=== PATIENT | female | born 1960 | race Caucasian/White ===

== ENCOUNTER 2016-12-09 19:04 | Observation (INO) | payer BC ==
[~2016-12-09] VITALS: Ht 157.5 cm; Wt 45.5 kg
[~2016-12-09 19:04] MED LIST: AMBIEN5 MG PO; ASPIRIN 81 MG E81 MG PO; BRILINTA90 MG PO; CELEXA10 MG PO; CELEXA20 MG PO; CIPRO500 MG; DURAGESIC1 PATCH .3 TD; DURAGESIC1 PATCH .7 TD; FISH OIL 1,2001 CA1 PO; HYDROCODONE-APA1 TA3 PO; HYDROCODONE-APA1 TAB PO; K-TAB10 MEQ PO; LASIX40 MG PO; LASIX80 MG PO; LIBRAX CAPSULE1 CAP PO; MORPHINE SULFAT30 MG PO; NICODERM C1 PATCH .3 TP; NITROSTAT0.4 MG SL; PLAVIX75 MG PO; PROTONIX20 MG PO; RESTORIL15 MG PO; SPIRIVA18 MCG INH; TAPAZOLE 5 MG TA5 MG PO; TOPROL XL25 MG PO; VALIUM10 MG PO; ZANAFLEX2 M1 PO; ZANAFLEX4 MG PO; ZOCOR20 MG PO; ZOCOR5 MG PO
[2016-12-09 19:48] LABS: BASOPHILS 0.1 % (0.0-2.0); EOSINOPHILS 1.9 % (0-7); HEMATOCRIT 41.1 % (36.0-48.0); HEMOGLOBIN 13.3 g/dL (12-16); IMMATURE GRANULOCYTES 0.2 % (0-5); LYMPHOCYTES 47.1 % (15-50); MCH 29.4 pg (26.0-34.0); MCHC 32.4 g/dL (31.0-37.0); MCV 90.9 fL (80.0-100.0); MEAN PLATELET VOLUME 8.9 fL (7.4-10.4); MONOCYTES 3.7 % (2-11); PLATELET COUNT 268 10x3/uL (130-400); RBC 4.52 10x6/uL (4.00-5.40); RDW 12.6 % (11.5-14.5); WBC 8.4 10x3/uL (4.8-10.8)
[2016-12-09 20:02] LABS: ALBUMIN 3.1 g/dL (3.4-5.0); ALKALINE PHOSPHATASE 148 U/L (46-116); ALT (SGPT) 15 U/L (10-68); BILIRUBIN - TOTAL 0.15 mg/dL (0.2-1.3); CALC OSMOLALITY 280 mosm/kg (275-300); CALCIUM 8.7 mg/dL (8.5-10.1); CARBON DIOXIDE 31.4 mmol/L (21.0-32.0); CHLORIDE - SERUM 104 mmol/L (98-107); CREATININE - SERUM 0.8 mg/dL (0.6-1.3); GLUCOSE 101 mg/dL (74-106); POTASSIUM - SERUM 3.3 mmol/L (3.5-5.1); SODIUM 141 mmol/L (136-145); UREA NITROGEN 12 mg/dL (7-18); eGFR NON AFRICAN AMERICAN 79 mL/min (90-120)
[2016-12-09 20:14] LABS: CHOL - HDL RATIO 5.4 ratio (2.3-4.1); CHOLESTEROL, TOTAL 204 mg/dL (0-200); CKMB 0.4 U/L (0.0-3.6); CREATINE KINASE 37 UL (21-215); HDL CHOLESTEROL 38 mg/dL (32-96); LDL CHOLESTEROL 139 mg/dL (0-100); LDL-HDL RATIO 3.7 ratio (1.5-3.5); TRIGLYCERIDE 138 mg/dL (30-200); TROPONIN-I < 0.017 ng/mL (0.000-0.060)
--- NOTE | 2016-12-09 21:18 | NUR ---
RECIEVED REPORT FROM KAMLA IN ER
--- NOTE | 2016-12-09 22:33 | NUR ---
PT RESTING IN BED. ALERT ORIENTED CONVERSANT. SINUSBRADY VIA EKG. MAN AT BEDSIDE ANSWERS MOST IF NOT ALL QUESTIONS POSED TO PT.
--- NOTE | 2016-12-09 22:56 | NUR ---
MAN AT BEDSIDE IS PT . SPOKE WITH HIM ABOUT PT MED LIST. STATED THAT THEY DID NOT HAVE A CURRENT COPY OF PT MED LIST. REQUESTED THAT LIST BE BROUGHT WHEN ABLE.
[2016-12-10 01:54] LABS: CKMB 0.5 U/L (0.0-3.6); CREATINE KINASE 29 UL (21-215)
[2016-12-10 01:55] LABS: TROPONIN-I < 0.017 ng/mL (0.000-0.060)
[2016-12-10 04:46] VITALS: BP 106/65; Ht 157.5 cm; Wt 45.5 kg
[2016-12-10 05:01] VITALS: BP 124/61
[2016-12-10 07:03] LABS: CKMB 0.4 U/L (0.0-3.6); CREATINE KINASE 28 UL (21-215); TROPONIN-I < 0.017 ng/mL (0.000-0.060)
[2016-12-10 07:20] VITALS: BP 103/64
--- NOTE | 2016-12-10 07:41 | NUR ---
ASSESSMENT COMPLETED. TELEMERTY SHOWS SR 60. O2 AT 2 L/M PER NC.DENIES ANY NEEDS AT PRESENT TIME. CALL LIGHT IN REACH WITH SR UP. WILL MONITOR
== END 2016-12-10 09:25 | disposition home or self-care (01) ==
LOC: D.ER 19:04 → D.M2 20:43 → OBSVTIME 20:43 → D.M2 12-10 09:25
PROVIDERS: Emergency Medicine; ADMIT Internal Medicine Cardiovascular Disease
DX: I25.110 Atherosclerotic heart disease of native coronary artery with unstable angina pectoris (principal); Z95.5 Presence of coronary angioplasty implant and graft; I10 Essential (primary) hypertension; Z86.73 Personal history of transient ischemic attack (TIA), and cerebral infarction without residual deficits; E05.00 Thyrotoxicosis with diffuse goiter without thyrotoxic crisis or storm; G80.9 Cerebral palsy, unspecified; Z72.0 Tobacco use

== ENCOUNTER → 2017-05-15 19:17 | Outpatient (CLI) | payer BC ==
[2016-12-10 04:46] VITALS: BMI 18.3
[2017-05-15 20:50] LABS: APPEARANCE CLEAR (CLEAR); BILIRUBIN NEGATIVE (NEGATIVE); COLOR YELLOW (YELLOW); GLUCOSE NEGATIVE (NEGATIVE); KETONE NEGATIVE (NEGATIVE); LEUKOCYTE ESTERASE TRACE (NEGATIVE); NITRITE NEGATIVE (NEGATIVE); PROTEIN NEGATIVE (NEGATIVE); UROBILINOGEN NORMAL (NORMAL)
[2017-05-15 20:51] LABS: BACTERIA MODERATE /hpf (NONE SEEN); EPITHELIAL CELLS OCC /hpf (0-5); RED CELLS - URINE OCC /hpf (0-5); WHITE CELLS - URINE 0-5 /hpf (0-5)
== END | disposition home or self-care (01) ==
LOC: D.LABREF 19:17
PROVIDERS: Urology
DX: N39.0 Urinary tract infection, site not specified (principal)

== ENCOUNTER → 2017-05-30 18:44 | Outpatient (CLI) | payer BC ==
[2016-12-10 04:46] VITALS: BMI 18.3
[2017-05-30 19:20] LABS: APPEARANCE CLEAR (CLEAR); BILIRUBIN NEGATIVE (NEGATIVE); COLOR YELLOW (YELLOW); GLUCOSE NEGATIVE (NEGATIVE); KETONE NEGATIVE (NEGATIVE); LEUKOCYTE ESTERASE TRACE (NEGATIVE); NITRITE NEGATIVE (NEGATIVE); PROTEIN NEGATIVE (NEGATIVE); UROBILINOGEN NORMAL (NORMAL)
[2017-05-30 19:21] LABS: BACTERIA FEW /hpf (NONE SEEN); EPITHELIAL CELLS 0-5 /hpf (0-5); RED CELLS - URINE OCC /hpf (0-5); WHITE CELLS - URINE 0-5 /hpf (0-5)
== END | disposition home or self-care (01) ==
LOC: D.LABREF 18:44
PROVIDERS: Urology
DX: N39.0 Urinary tract infection, site not specified (principal)

== ENCOUNTER 2017-06-08 06:26 | Day surgery (SDC) | payer BC ==
[2017-06-06 11:34] LABS: HEMATOCRIT 43.6 % (36.0-48.0); HEMOGLOBIN 14.1 g/dL (12-16); MCHC 32.3 g/dL (31.0-37.0); MCV 92.8 fL (80.0-100.0); MEAN PLATELET VOLUME 9.3 fL (7.4-10.4); RBC 4.7 10x6/uL (4.00-5.40); RDW 13.2 % (11.5-14.5); WBC 7.9 10x3/uL (4.8-10.8)
[~2017-06-08] VITALS: Ht 157.5 cm; Wt 48.5 kg
[~2017-06-08 06:26] MED LIST changes: +AMOXICILLIN500 M1 PO; +EFFEXOR XR75 MG PO; +OXYBUTYNIN CHLOR5 MG PO
[2017-06-08 08:21] LABS: HCG URINE NEGATIVE (NEGATIVE)
[2017-06-08 08:27] VITALS: BP 112/68; Ht 157.5 cm; Wt 48.5 kg
--- NOTE | 2017-06-09 08:58 | OP ---
PATIENT NAME: MGEA KEY MEDICAL RECORD: [id number] :62 LOCATION:D.OPS ADMISSION DATE: SURGEON: HEIDY BARRY MD DATE OF OPERATION: 06/08/2017 SURGEON: Heidy Barry MD ANESTHESIA: MAC by Koby Montes CRNA. PREOPERATIVE DIAGNOSIS: Interstitial cystitis. POSTOPERATIVE DIAGNOSIS: Interstitial cystitis. FINDINGS: Single ureteral orifices bilaterally. No bladder tumors. Diffuse bladder inflammation. PROCEDURES: Cystoscopy, intravesical Rimso instillation 50 mL times 50%. SPECIMENS: None. COMPLICATIONS: None. ESTIMATED BLOOD LOSS: None. CLINICAL HISTORY: This is a 57-year-old female, who has symptoms of ongoing urinary tract infections. These include urinary frequency, pelvic pain and dyspareunia. On pelvic examination, she has a lot of tenderness in the trigonal region of the bladder. She has been put on multiple antibiotics without any response and she has also tried oxybutynin without any response. When I saw earlier this year, she did have a true cystitis with bacterial growth. This was treated by her symptoms persist. She comes now to have cystoscopy and possibly intravesical Rimso instillation if we find bladder inflammation. Rimso is an anti-inflammatory. SHE IS ALLERGIC TO DOXYCYCLINE, LISINOPRIL, SULFA AND ALY INHIBITORS. She was given Ancef 2 grams IV quarter section ironer to the OR. DESCRIPTION OF PROCEDURE: The patient was given IV sedation. She was then placed into dorsal lithotomy position and prepped and draped. A 17-Venezuelan cystoscope with 30-degree lens was used for visualization. Findings are as outlined above. The bladder was then emptied through the scope sheath and then the sheath was removed. A 14-Venezuelan red rubber catheter was introduced into the bladder and any residual fluid was drained out of the bladder. The Rimso solution was then put into the bladder using a Raul syringe. The catheter was then removed, leaving the Rimso solution in the bladder. She will hold it in for 15 minutes and then void it out. She will come to my office next week to have the second treatment given to her by my nurse. TRANSINT:[id number] Voice Confirmation ID: [id number] DOCUMENT ID: [id number] OPERATIVE REPORT [id number] MEGA KEY HEIDY BARRY MD at 2480 CC: [id number] DICTATION DATE: 06/08/17 1139 INDUSTRIAL CONTROLLER: 06/08/17 1756 [facility] 06/08/17 [id number] [place] [address]
== END 2017-06-08 12:25 | disposition home or self-care (01) ==
LOC: D.OPS 06:26 → D.PAN 10:40 → D.OPS 10:40 → D.PAN 10:45 → D.OPS 10:45
PROVIDERS: Anesthesiology; Urology
DX: N30.10 Interstitial cystitis (chronic) without hematuria (principal); Z88.1 Allergy status to other antibiotic agents; Z88.2 Allergy status to sulfonamides; Z88.8 Allergy status to other drugs, medicaments and biological substances; Z01.812 Encounter for preprocedural laboratory examination

== ENCOUNTER → 2017-06-28 18:52 | Outpatient (CLI) | payer BC ==
[2017-06-08 08:27] VITALS: BMI 19.6
[2017-06-29 00:26] LABS: APPEARANCE HAZY (CLEAR); BILIRUBIN NEGATIVE (NEGATIVE); COLOR GREEN (YELLOW); GLUCOSE NEGATIVE (NEGATIVE); KETONE NEGATIVE (NEGATIVE); LEUKOCYTE ESTERASE TRACE (NEGATIVE); NITRITE NEGATIVE (NEGATIVE); PROTEIN TRACE mg/dL (NEGATIVE); SPECIFIC GRAVITY 1.015 (1.005-1.020); UROBILINOGEN NORMAL (NORMAL)
[2017-06-29 00:30] LABS: BACTERIA MODERATE /hpf (NONE SEEN); MUCUS <1+ /lpf (NONE SEEN)
== END | disposition home or self-care (01) ==
LOC: D.LABREF 18:52
PROVIDERS: Urology
DX: N39.0 Urinary tract infection, site not specified (principal)

== ENCOUNTER 2017-07-06 08:25 | Day surgery (SDC) | payer BC ==
[~2017-07-06] VITALS: Ht 157.5 cm; Wt 47.7 kg
[2017-07-06 09:13] LABS: BASOPHILS 0.2 % (0-2); EOSINOPHILS 1.1 % (0-7); HEMATOCRIT 42.9 % (36.0-48.0); HEMOGLOBIN 14.2 g/dL (12-16); LYMPHOCYTES 40.9 % (15-50); MCH 30.3 pg (26.0-34.0); MCHC 33.1 g/dL (31.0-37.0); MCV 91.5 fL (80.0-100.0); MEAN PLATELET VOLUME 8.7 fL (7.4-10.4); MONOCYTES 3.9 % (2-11); NEUTROPHILS 53.9 % (40-80); PLATELET COUNT 237 10x3/uL (130-400); RBC 4.69 10x6/uL (4.00-5.40); WBC 5.4 10x3/uL (4.8-10.8)
[2017-07-06 09:22] LABS: CALC OSMOLALITY 278 mosm/kg (275-300); CALCIUM 8.7 mg/dL (8.5-10.1); CARBON DIOXIDE 28.8 mmol/L (21.0-32.0); CHLORIDE - SERUM 106 mmol/L (98-107); CREATININE - SERUM 0.7 mg/dL (0.6-1.3); GLUCOSE 93 mg/dL (74-106); POTASSIUM - SERUM 4.1 mmol/L (3.5-5.1); SODIUM 141 mmol/L (136-145); UREA NITROGEN 8 mg/dL (7-18); eGFR NON AFRICAN AMERICAN > 90 mL/min (90-120)
[2017-07-06 09:25] VITALS: BP 121/77; Ht 157.5 cm; Wt 47.7 kg
[2017-07-06 10:01] LABS: HCG URINE NEGATIVE (NEGATIVE)
--- NOTE | 2017-07-06 17:30 | NUR ---
1720 DISCHARGE INSTRUCTIONS COMPLETE. PT HAS NO QUESTIONS OR CONCERNS AT THIS TIME. ESCORTED OUT BY GORDON GODDARD.
--- NOTE | 2017-07-07 11:24 | OP ---
PATIENT NAME: MEGA KEY MEDICAL RECORD: [id number] :62 LOCATION:D.OPS ADMISSION DATE: SURGEON: YARON BARRY MD DATE OF OPERATION: 07/06/2017 SURGEON: Yaron Barry MD ANESTHESIA: MAC by Ayala John CRNA. PREOPERATIVE DIAGNOSIS: Acute cystitis. PROCEDURES: Straight catheterization of urine for culture. FINDINGS: Clear appearing urine SPECIMENS: Urine. CLINICAL HISTORY: This is a 57-year-old female with history of urinary tract infection symptoms. Sometimes these cultures have grown nothing. In May of this year, she had cystoscopy, which showed bladder inflammation and we had treated her with intravesical Rimso. Lately, she feels further episodes of suprapubic pain as well as dysuria. She was started empirically on amoxicillin 2 weeks ago, but this has not helped her. Urine cultures have shown mixed organisms. In the office yesterday, we attempted to get a urine specimen by straight catheterization. However, the patient has quite severe vaginal stenosis. 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 This prevented a great deal of difficulty in getting a catheter going to the urethra. She comes now to have the same procedure done under IV sedation so that her legs can be placed apart a little more. She was not given any antibiotics as we did not want to affect her urine culture results. DESCRIPTION OF PROCEDURE: The patient was given IV sedation. She was placed into dorsal lithotomy position and she was prepped and draped. A red rubber catheter was used. The urethra could be identified and it was entered into. Urine was obtained for culture. She will be sent for aerobic, anaerobic, and fungal cultures. Once the bladder was emptied, the red rubber catheter was removed and the patient was brought to the recovery room. TRANSINT:[id number] Voice Confirmation ID: [id number] DOCUMENT ID: [id number] YARON BARRY MD at 1124 CC: [id number] DICTATION DATE: 07/06/17 1604 FITTER MECHANIC: 07/07/17 0025 [facility] 07/06/17 [place] [address]
[2017-07-07 14:20] LABS: FUNGUS STAIN Final report (())
== END 2017-07-06 17:20 | disposition home or self-care (01) ==
LOC: D.OPS 08:25
PROVIDERS: Anesthesiology; Urology
DX: N30.00 Acute cystitis without hematuria (principal); F17.200 Nicotine dependence, unspecified, uncomplicated; K21.9 Gastro-esophageal reflux disease without esophagitis; Z95.5 Presence of coronary angioplasty implant and graft; Z01.812 Encounter for preprocedural laboratory examination

== ENCOUNTER 2019-07-26 08:55 | Outpatient (CLI) | payer OTHER ==
[~2019-07-26] VITALS: Ht 157.5 cm; Wt 49.5 kg
--- NOTE | ~2019-07-26 | HEMODYNAMI ---
PATIENT:MEGA KEY MEDICAL RECORD: [id number] : 64 LOCATION:[facility] ADMISSION DATE: 07/26/19 Generatedon:07/26/201914:24 Patient name: MEGA KEY Patient #: [id number] SSN: [id number] : 1960 Date of study: 07/26/2019 Page: Of Hemodynamic Procedure Report Patient Data Patient Demographics Procedure consent was obtained First Name: MEGA Gender: Female Last Name: SHAHID : 1960 Middle Initial: MIMI Age: 59 year(s) Patient #: [id number] Race: SSN: [id number] Additional ID: [id number] Contact details [address]: [address] [place] [address] State: [place] City: [place] Zip code: [address] Past Medical History History of disease Date Diagnosis Comments CAD Allergies Allergen Reaction Date Comments Reported Other allergy 01/05/2015 doxycycline, lisinopril, sulfa Other allergy 07/26/2019 DOXYCYCLINE, LISINOPRIL, SULFA Admission Admission Data Admission Date: 07/26/2019 Admission Time: 8:55 Arrival Date: 07/26/2019 Arrival Time: 0:00 [facility] Pay[facility]: Private health insurance PSYCHIATRIC #: [id number] Height (in.): 61.81 BSA: 1.48 (m2) Height (cm.): 157 BMI: 20.28 (kg/m2) Weight (lbs.): 110.23 Weight (kg.): 50 Lab Results Lab Result Date: 07/26/2019 Lab Result Time: 0:00 Biochemistry Name Units Result Min Max BUN mg/dl 12 --(-*--)-- 7 18 Creatinine mg/dl 0.9 --(-*--)-- 0.6 1.3 eGFR ml/min 67.76377 *-(----)-- 90 120 NONAFRICAN CBC Name Units Result Min Max Hematocrit % 41.4 -*(----)-- 42 54 Hemoglobin g/dl 13.6 --(*---)-- 13.5 17.5 Procedure Procedure Types Cath Procedure Diagnostic Procedure [facility] w/Coronaries FFR/IVUS FFR Initial FFR Additional Sedation Charges Moderate Sedation up to 30 minutes Peripheral Cath Diagnostic Procedure Proofreader Peripheral Procedures AFRO (Diagnostic) Procedure Description Procedure Date Procedure Date: 07/26/2019 Procedure Start Time: 13:37 Procedure End Time: 14:19 Procedure Staff Name Function Humberto Ruggiero MD Performing Physician Rosio Childress RT Monitor Margaret Cuellar RT Scrub Rogers Gilbert RN Nurse William Zimmer RT Fire Prevention Bureau Captain Indication CAD Procedure Data Cath Procedure Fluoroscopy Diagnostic fluoroscopy Total fluoroscopy Time: 9.2 time: 9.2 min min Diagnostic fluoroscopy Total fluoroscopy dose: 447 dose: 447 mGy mGy Contrast Material Contrast Material Type Amount (ml) Isovue 300 164 Entry Location Entry Primary Successful Side Size Upsize Upsize Entry Closure Succes sful Closure Location (Fr) 1 (Fr) 2 (Fr) Remarks Device Remarks Femoral Right 5 Fr 6 Fr Exoseal artery Short Estimated blood loss: 10 ml Diagnostic catheters Device Type Used For End Catheter Placement MULTIPACK 3DRC 5Fr Procedure catheter MULTIPACK Pigtail 5 Fr Procedure catheter MULTIPACK JL 4.0 5Fr Procedure catheter MULTIPACK 3DRC 5Fr Procedure catheter Procedure Complications No complications Procedure Medications Medication Administration Route Dosage Oxygen etCO2 Nasal cannula 2 l/min Lidocaine 2% added to field 20 Heparin Flush Bag added to field 2 bags (1000units/500ml NS) Versed I.V. 2 mg Fentanyl I.V. 100 mcg Versed I.V. 1 mg Fentanyl I.V. 50 mcg Versed I.V. 1 mg Heparin Bolus I.V. 4000 units Hemodynamics Rest BSA: 1.48 (m2) HGB: 13.6 (g/dl) O2 Consumption: Estimated: 137.33 (ml/min) O2 Co nsumption indexed: Estimated:92.79 (ml/min/m) Heart Rate: 62 (bpm) Snapshots Pre Cath Intra NCS Post Cath Vital Signs Time Heart Resp SPO2 etCO2 NIBP (mmHg) Rhythm Pain Sedation Rate (ipm) (%) (mmHg) Status Level (bpm) 13:07:20 66 19 100 0 157/76(101) NSR 0 (11) 10(A) , No pain 13:11:35 67 21 99 0 138/74(107) NSR 0 (11) 10(A) , No pain 13:15:51 67 19 99 28.3 139/77(103) NSR 0 (11) 10(A) , No pain 13:20:04 77 19 96 27.6 137/87(111) NSR 0 (11) 10(A) , No pain 13:24:13 79 17 95 41 125/80(104) NSR 0 (11) 10(A) , No pain 13:28:25 68 17 96 20.1 130/75(105) NSR 0 (11) 10(A) , No pain 13:32:35 77 20 96 22.4 117/83(94) NSR 0 (11) 10(A) , No pain 13:36:43 77 14 93 0 119/74(93) NSR 0 (11) 9(A) , No pain 13:40:51 70 15 95 10.4 78/49(65) NSR 0 (11) 9(A) , No pain 13:44:50 66 10 95 29.8 92/53(68) NSR 0 (11) 9(A) , No pain 13:48:54 63 14 94 37.2 102/61(82) NSR 0 (11) 9(A) , No pain 13:53:02 66 13 94 34.3 105/58(75) NSR 0 (11) 9(A) , No pain 13:57:14 69 11 94 34.3 97/49(74) NSR 0 (11) 9(A) , No pain 14:01:22 69 11 94 35.8 100/54(79) NSR 0 (11) 9(A) , No pain 14:05:28 67 12 94 35 104/58(72) NSR 0 (11) 9(A) , No pain 14:09:35 75 12 96 35.8 111/60(80) NSR 0 (11) 10(A) , No pain 14:13:41 70 15 97 38 111/73(91) NSR 0 (11) 10(A) , No pain 14:17:47 72 21 99 37.2 109/73(91) NSR 0 (11) 10(A) , No pain Medications Time Medication Route Dose Verified Delivered Reason Notes Effectiveness by by 13:18:21 Heparin Flush added 2 Humbertosamara Taverarey used for Bag to bags Monik Ruggiero MD procedure (1000units/500ml field NS) 13:18:21 Oxygen etCO2 2 Humberto Rojasie used for Nasal l/min Monik Gilbert RN procedure cannula 13:18:28 Lidocaine 2% added 20ml Humberto Paul for local to vial Monik Ruggiero MD anesthetic field 13:33:35 Versed I.V. 2 mg Humberto Rojasie for sedation Monik Gilbert RN 13:33:42 Fentanyl I.V. 100 Humberto Buffie for sedation mcg Monik Gilbert RN 13:40:23 Versed I.V. 1 mg Humberto Rojsaie for sedation Monik Gilbert RN 13:40:29 Fentanyl I.V. 50 Humberto Rojasie for sedation mcg Monik Gilbert RN 13:49:12 Versed I.V. 1 mg Humberto Rojasie for sedation Monik Gilbert RN 13:53:42 Heparin Bolus I.V. 4000 Humberto Mccloud for verif ied units Monik Gilbert RN anticoagulation with dr ruggiero Procedure Log Time Note 12:38:15 Signed procedure consent form obtained from patient. 12:38:17 Procedure Status Elective Heart Cath (OP). 12:38:18 Time tracking: Regular hours (M-F 7:00 - 5:00) 12:38:21 Plan of Care:Hemodynamics will remain stable., Cardiac rhythm will remain stable., Comfort level will be maintained., Respiratory function will remain adequate., Patient/ family verbilizes understanding of procedure., Procedure tolerated without complication., Recovers from procedure without complications.. 12:39:57 Patient Weight : 110.23 lbs 12:40:29 Patient Height : 61.81 inches 12:40:34 Arrival Date: 07/26/2019 12:00:00 AM 12:41:08 Lab Result : eGFR NONAFRICAN 67.44177 ml/min 12:41:08 Lab Result : Creatinine 0.9 mg/dl 12:41:08 Lab Result : BUN 12 mg/dl 12:41:08 Lab Result : Hematocrit 41.4 % 12:41:08 Lab Result : Hemoglobin 13.6 g/dl 12:41:39 Insurance Payor : Private health insurance 12:43:27 William Zimmer RT(R) sent for patient. Start room use. 12:44:41 Patient allergic to Other allergyDOXYCYCLINE, LISINOPRIL, SULFA 12:45:09 Indication : CAD 12:57:03 Patient received from Pre/Post Procedure Room to CCL 1 Alert and oriented. Tansferred to table in Supine position. 12:57:04 Warm blankets applied, and alison hugger turned on for patient comfort. 12:57:05 Correct patient and procedure confirmed by team. 12:57:05 ECG and BP/O2 sat monitors applied to patient. 13:06:03 Vital chart was started 13:06:04 Baseline sample Acquired. 13:06:09 Rhythm: sinus rhythm 13:06:10 Full Disclosure recording started 13:06:17 H&P Date Dictated: 07/15/2019 Within 30 days and on chart., H&P Addendum completed by physician on day of procedure. (MUST COMPLETE FOR ALL OUTPATIENTS). 13:06:18 Pre-procedure instructions explained to patient. 13:06:19 Pre-op teaching completed and patient verbalized understanding. 13:06:20 Family in patients room. 13:06:22 Patient NPO since Midnight. 13:06:24 Is patient on blood thinner?Yes 13:06:26 ACC The patient was administered the following blood thiners within the last 24 hours: ACCPlavix 13:06:28 Patient diabetic? No. 13:06:38 Patient not . Patient is over age 55. 13:06:50 Previous problem with sedation/anesthesia? No ? 13:06:52 Snore? Yes 13:06:53 Sleep apnea? No 13:06:54 Deviated septum? No 13:06:56 Opens mouth fully? Yes 13:06:57 Sticks out tongue? Yes 13:06:59 Airway obstruction? No ? 13:07:03 Dentures? Yes IN TIGHT 13:07:14 Pre procedure: right dorsailis pedis pulse 1+ Palpable, but thready & weak; easily obliterated 13:07:16 Patient pain scale 0/10 ?. 13:07:21 IV patent on arrival in right antecubital with 0.9% NaCl at [facility]. 13:07:24 Lab results completed and on chart. 13:07:28 Right groin area was prepped with chlora-prep and draped in sterile fashion 13:07:29 Alarms reviewed by R. N. 13:07:30 Sharps counted by scrub and verified by R.N. 13:07:31 Use device set Femoral Dx 13:07:32 ACIST Syringe (42157) opened to sterile field. 13:07:38 Bag Decanter (2002S) opened to sterile field. 13:07:41 ACIST Hand Control (94967) opened to sterile field. 13:07:41 ACIST Manifold (08127) opened to sterile field. 13:07:42 Tegaderm 4 x 4 (1626W) opened to sterile field. 13:07:47 Medline Cath Pack ([id number]) opened to sterile field. 13:07:50 DIAGNOSTIC Multipack 5Fr catheter set (FJ1719) opened to sterile field. 13:07:51 SHEATH 5FR Warren (DCM379) opened to sterile field. 13:07:52 EMERALD Guide Wire (864-689) opened to sterile field. 13:18:21 Heparin Flush Bag (1000units/500ml NS) 2 bags added to field was administered by Humberto Ruggiero MD; used for procedure; Verbal order read back and verified. 13:18:21 Oxygen 2 l/min etCO2 Nasal cannula was administered by Rogers Gilbert RN; used for procedure; Verbal order read back and verified. 13:18:28 Lidocaine 2% 20ml vial added to field was administered by Humberto Ruggiero MD; for local anesthetic; Verbal order read back and verified. 13:31:50 Baseline sample Acquired. 13:32:31 --------ALL STOP TIME OUT------ 13:32:32 Final Timeout: patient, procedure, and site verified with staff and physician. All members of the team are in agreement. 13:32:34 Right groin site verified by team. 13:32:38 Fire Safety Assessment: A--An alcohol-based skin anteseptic being used preoperatively., C--Open oxygen or nitrous oxide is being used., D--An ESU, laser, or fiber-optic light is being used. 13:32:41 Physical assessment completed. ASA score P 2 - A patient with mild systemic disease as per Humberto Ruggiero MD. 13:32:50 2) 60-89 Mildly reduced kidney function, and other findings (as for stage 1) point to kidney disease. 13:33:01 Maximum allowable contrast dose (3.7 X eGFR X 0.75)189 ml. 13:33:04 Sedation plan: IV Moderate Sedation Medication:Versed, Fentanyl 13:33:22 Zero performed for pressure channel P1 13:33:35 Versed 2 mg I.V. was administered by Rogers Gilbert RN; for sedation; Verbal order read back and verified. 13:33:42 Fentanyl 100 mcg I.V. was administered by Rogers Gilbert RN; for sedation; Verbal order read back and verified. 13:35:38 Zero performed for pressure channel P1 13:36:56 Procedure started. 13:37:31 Local anesthetic to right femoral artery with Lidocaine 2% by Humberto Ruggiero MD.INITIAL ACCESS ONLY 13:39:44 A 5 Fr sheath was inserted into the Right Femoral artery 13:40:23 Versed 1 mg I.V. was administered by Rogers Gilbert RN; for sedation; Verbal order read back and verified. 13:40:29 Fentanyl 50 mcg I.V. was administered by Rogers Gilbert RN; for sedation; Verbal order read back and verified. 13:41:47 13:41:57 GLIDE WIRE ANGLE 260cm (YA9572) opened to sterile field. 13:42:02 A MULTIPACK 3DRC 5Fr catheter was advanced over the wire and used for Procedure. 13:42:21 GLIDE WIRE USED TO ADVANCE 3DRC DUE TO DIFFICULTY ADVANCING WIRE AND CATHETER 13:42:35 EMERALD Guide Wire (309-886) opened to sterile field. 13:44:57 3DRC REMOVED OVER THE WIRE. 13:45:03 A MULTIPACK Pigtail 5 Fr catheter was advanced over the wire and used for Procedure. 13:45:38 MAGIC TORQUE 180cm 0.035 wire ([id number]) opened to sterile field. 13:46:12 LV gram done using SCHROEDER 13:46:17 Injector settings: Ml/sec: 10, Volume: 20, 13:46:46 EF : 60 % 13:47:04 PIGTAIL PULLED DOWN FOR AFRO 13:47:30 Abdominal angiogram w/ runoff was performed. 13:47:34 Right leg runoff performed. 13:47:36 Left leg runoff performed. 13:47:54 Catheter exchanged over wire. 13:48:28 A MULTIPACK JL 4.0 5Fr catheter was advanced over the wire and used for Procedure. 13:49:12 Versed 1 mg I.V. was administered by Rogers Gilbert RN; for sedation; Verbal order read back and verified. 13:50:10 LCA angiography performed. 13:50:11 Catheter exchanged over wire. 13:50:40 SHEATH 6FR Warren (BKU072) opened to sterile field. 13:50:41 INFLATOR Merit BasixCompak (SL8553) opened to sterile field. 13:50:41 [place] Verrata Plus pressure wire (31253V) opened to sterile field. 13:50:48 GUIDE 6FR XBLAD 3.5 catheter ([id number]) opened to sterile field. 13:50:52 A MULTIPACK 3DRC 5Fr catheter was advanced over the wire and used for Procedure. 13:51:13 RCA angiography performed. 13:51:18 Catheter exchanged over wire. 13:52:04 Sheath upsized to a 6 Fr Short. 13:52:36 Pre PCI Site: [place] mCirc has 80% stenosis. 13:52:38 GUIDE 6FR AR 1.0 SH catheter ([id number]) opened to sterile field. 13:52:44 Pre PCI Site: [place] mLAD has 90% stenosis. 13:53:31 6 Fr AR 1 SH guide catheter was inserted over the wire 13:53:42 Heparin Bolus 4000 units I.V. was administered by Rogers Gilbert RN; for anticoagulation; verified with dr ruggiero Verbal order read back and verified. 13:54:18 FFR/IFR wire advanced. 13:54:51 Wire advanced across lesion. 13:55:09 mRCA lesion measured at .99 with IFR 13:55:24 Wire removed. 13:55:26 Guide catheter removed. 13:55:46 6 Fr XBLAD 3.5 guide catheter was inserted over the wire 13:57:40 FFR/IFR wire advanced. 13:58:50 Wire advanced across lesion. 13:58:55 mCirc lesion measured at .75 with IFR 14:02:12 Place stent Inflation Number: 1 A COSMO RX 2.25 x 18 stent ([id number]) was prepped and advanced across the Mid CX . The stent was deployed at 15 CHRISTIAN for 0:10 (min:sec) . 14:02:23 Stent catheter was removed intact over wire. 14:05:46 Wire removed. 14:05:56 CHOICE PT Extra Support 182cm wire ([id number]) opened to sterile field. 14:06:04 CHOICE ES 182 wire advanced. 14:06:17 Wire advanced across lesion. 14:07:37 Place stent Inflation Number: 1 A COSMO RX 2.5 x 22 stent ([id number]) was prepped and advanced across the Mid LAD . The stent was deployed at 13 CHRISTIAN for 0:00 (min:sec) . 14:07:51 Stent catheter was removed intact over wire. 14:09:05 Place stent Inflation Number: 2 A COSMO RX 2.5 x 15 stent ([id number]) was prepped and advanced across the Mid LAD . The stent was deployed at 13 CHRISTIAN for 0:00 (min:sec) . 14:09:50 Stent catheter was removed intact over wire. 14:09:51 Wire removed. 14:09:52 Guide catheter removed. 14:10:07 EXOSEAL 6Fr (EX600) opened to sterile field. 14:10:17 Sheath removed intact; hemostasis achieved with Exoseal to the Right Femoral artery. 14:10:19 Procedure ended.(Physican Out) 14:11:23 Fluoroscopy time 09.20 minutes. 14:11:27 Flurop Dose total: 447 14:11:27 Fluoroscopy dose: 447 mGy 14:11:34 Dose Area Product 89823 mGy/cm. 14:11:38 Contrast amount:Isovue 300 164ml. 14:12:22 Maximum allowable dose exceeded? No. 14:12:23 Sharps counted by scrub and verified by R.N. 14:12:26 Post-op/insertion site Right Femoral artery dressed using a 4 x 4 and Tegaderm. 14:13:52 Post-procedure physical assessment completed. ASA score P 2 - A patient with mild systemic disease as per Humberto Ruggiero MD. 14:13:55 Post procedure rhythm: sinus rhythm 14:13:57 Estimated blood loss: 10 ml 14:13:58 Post procedure instruction explained to patient.Patient verbalizes understanding. 14:13:58 Patient needs reinforcement of post procedure teaching. 14:14:39 Procedure type changed to Cath procedure, Diagnostic procedure, LHC, LHC w/Coronaries, FFR/IVUS, FFR Initial, FFR Additional, Sedation Charges, Moderate Sedation up to 30 minutes, Peripheral Cath Diagnostic Procedure, Proofreader Peripheral Procedures, AFRO (Diagnostic) 14:16:22 Procedure and supply charges have been captured, reviewed, submitted and are correct. 14:16:23 Procedure Complication : No complications 14:19:17 Vital chart was stopped 14:19:18 See physician's report for complete and final results. 14:19:19 Report given to Pre/Post Procedure Room. 14:19:21 Patient transfered to Pre/Post Procedure Room with Bed. 14:19:24 Procedure ended. 14:19:24 Full Disclosure recording stopped 14:19:29 End room use (Document Last) 14:23:32 End room use (Document Last) 14:23:58 End room use (Document Last) Intervention Summary Intervention Notes Time ActionType Lesion and Equipment Used Action# Pressure Duration Attributes 14:02:12 Place stent Mid CX COSMO RX 2.25 x 1 15 00:10 18 stent ([id number]) 14:07:37 Place stent Mid LAD COSMO RX 2.5 x 1 13 00:00 22 stent ([id number]) 14:09:05 Place stent Mid LAD COSMO RX 2.5 x 2 13 00:00 15 stent ([id number]) Device Usage Item Name Manufacture Quantity Catalog Number Hospital Part Current Minimal Lot# / Charge Number Stock Stock Serial# Code ACIST Syringe Acist 1 23661 337004 117773 342801 20 (07769) Medical Systems Inc Bag Decanter Microtek 1 2001S 679710 05087 430790 5 (2001S) Medical Inc. ACIST Hand Acist 1 36339 211687 029013 435774 5 Control Medical (13176) Systems Inc ACIST Manifold Acist 1 83092 570957 640002 856486 5 (73458) Medical Systems Inc Tegaderm 4 x 4 3M 1 1626W 115262 966998 386897 5 (1626W) Medline Cath Medline 1 [id number] 584900 52318 214983 5 Pack ([id number]) DIAGNOSTIC Cardinal 1 ZH1921 418849 61948 605798 30 Multipack 5Fr Health catheter set (JX2622) SHEATH 5FR Terumo 1 ZZJ988 944499 295358 679970 5 Warren (JZA180) EMERALD Guide Cardinal 2 502-455 297726 281754 445181 5 Wire (502-455) Health GLIDE WIRE Terumo 1 BL6119 458072 691815 393941 5 ANGLE 260cm (PY6296) MULTIPACK 3DRC Cardinal 1 473744 5 5Fr catheter Health MULTIPACK Cardinal 1 371442 5 Pigtail 5 Fr Health catheter MAGIC TORQUE [place] 1 [id number] 348006 073787 790009 1 180cm 0.035 Scientific wire ([id number]) MULTIPACK JL Cardinal 1 125123 5 4.0 5Fr Health catheter SHEATH 6FR Terumo 1 WUD589 389317 596575 047490 40 Warren (JIB749) INFLATOR Merit Merit 1 YQ2376 927571 450433 986602 15 I-Mob HoldingsAmerican [facility]ork Hospital Medical (VL1941) [place] 1 94471A 219744 016087125 252071 5 Verrata Plus pressure wire (17690S) GUIDE 6FR Cardinal 1 25106178 083736 674610 756592 10 XBLAD 3.5 Health catheter (82140624) GUIDE 6FR AR Medtronic 1 [id number] 995209 66734 088700 1 1.0 SH catheter ([id number]) COSMO RX 2.25 x Medtronic 1 [id number] 010669 3205559 793704 5 [id number] 18 stent ([id number]) CHOICE PT [place] 1 [id number] 832701 267684 698334 5 Extra Support Scientific 182cm wire (0638905L8) COSMO RX 2.5 x Medtronic 1 [id number] 133287 8911428 420155 5 [id number] 22 stent ([id number]) COSMO RX 2.5 x Medtronic 1 [id number] 430285 5429639 741055 5 [id number] 15 stent ([id number]) EXOSEAL 6Fr Cardinal 1 EX600 608593 685062 727524 10 (EX600) Health Signature Audit [place] Stage Time Signature Unsigned Intra-Procedure 07/26/2019 Rosio Childress 2:23:32 PM RT(R) Intra-Procedure 07/26/2019 Rogers Gilbert RN 2:23:58 PM Intra-Procedure 07/26/2019 Hubmerto Ruggiero 2:24:21 PM [place] [id number] [facility] [place] [address]
[2019-07-26] MEDS ORDERED: PLAVIX75 MG PO (09:48)
[2019-07-26] MEDS ORDERED: RANITIDINE HCL150 M1 PO (09:52)
[2019-07-26] MEDS ORDERED: LOPRESSOR25 MG PO (09:52)
[2019-07-26] MEDS ORDERED: LIPITOR20 MG PO (09:53)
[2019-07-26 10:02] VITALS: BP 141/78; Ht 157.5 cm; Wt 49.5 kg
[2019-07-26 10:08] LABS: BASOPHILS 0.2 % (0-2); HEMATOCRIT 41.4 % (36.0-48.0); HEMOGLOBIN 13.6 g/dL (12-16); IMMATURE GRANULOCYTES 0.1 % (0-5); LYMPHOCYTES 29.2 % (15-50); MCH 30.4 pg (26.0-34.0); MCHC 32.9 g/dL (31.0-37.0); MCV 92.4 fL (80.0-100.0); MEAN PLATELET VOLUME 8.8 fL (7.4-10.4); MONOCYTES 5.8 % (2-11); NEUTROPHILS 62.7 % (40-80); PLATELET COUNT 202 10x3/uL (130-400); RBC 4.48 10x6/uL (4.00-5.40); RDW 12.9 % (11.5-14.5); WBC 8.1 10x3/uL (4.8-10.8)
[2019-07-26 10:27] LABS: ANION GAP 11.7 mmol/L (8-16); CALCIUM 8.7 mg/dL (8.5-10.1); CARBON DIOXIDE 30.4 mmol/L (21.0-32.0); CREATININE - SERUM 0.9 mg/dL (0.6-1.3); LDL-HDL RATIO 2.6 ratio (1.5-3.5); POTASSIUM - SERUM 4.1 mmol/L (3.5-5.1)
--- NOTE | 2019-07-26 14:35 | NUR ---
PT ARRIVED BY STRETCHER. PLACED ON MONITORS. ASSESSMENT COMPLETED. VSS. FAMILY AT BEDSIDE. DR. VALDIVIA ROUNDED AND SPOKE WITH PT AND PT'S FAMILY. CALL LIGHT WITHIN REACH.
--- NOTE | 2019-07-26 14:50 | NUR ---
VERY SMALL AMOUNT OF BLOOD NOTED TO RIGHT GROIN DRESSING. MARKED TO MONITOR. NO S/S OF HEMATOMA NOTED. VSS. PT IN SUPINE POSITION. RIGHT PEDAL PULSE PALPABLE.
--- NOTE | 2019-07-26 15:20 | NUR ---
SMALL AMOUNT OF BLEEDING NOTED ON RIGHT GROIN DRESSING, MANUAL PRESSURE APPLIED FOR 10 MINUTES, BORDER MARKED ON DRESSING. VSS ON ROOM AIR. NO C/O PAIN, NUMBNESS, OR TINGLING. NO N/V.
--- NOTE | 2019-07-26 15:30 | NUR ---
PATIENT REASSESSED, NO NEW S/S OF BLEEDING OR HEMATOMA.
--- NOTE | 2019-07-26 15:50 | NUR ---
PATIENT RESTING, VSS ON ROOM AIR. RIGHT GROIN DRESSING SHOWS NO NEW S/S OF BLEEDING OR HEMATOMA. NO C/O PAIN, NUMBNESS, OR TINGLING. NO N/V. FAMILY PRESENT AT BEDSIDE.
--- NOTE | 2019-07-26 16:20 | NUR ---
PATIENT RESTING, FAMILY AT BEDSIDE. VSS ON ROOM AIR. RIGHT GROIN DRESSING IS CDI, NO NEW S/S OF BLEEDING OR HEMATOMA. NO C/O PAIN, NUMBNESS, OR TINGLING. TOLERATING PO FLUIDS. NO N/V.
--- NOTE | 2019-07-26 16:50 | NUR ---
PATIENT VOIDED WITHOUT DIFFICULTY PER BEDPAN. VSS ON ROOM AIR. RIGHT GROIN DRESSING SHOWS NO NEW S/S OF BLEEDING OR HEMATOMA. NO C/O PAIN, NUMBNESS, OR TINGLING.
--- NOTE | 2019-07-26 17:20 | NUR ---
HEAD OF BED ELEVATED TO 30 DEGREES, RIGHT GROIN DRESSING SHOWS NO FURTHER S/S OF BLEEDING OR HEMATOMA. NO C/O PAIN, NUMBNESS, OR TINGLING. VSS ON ROOM AIR. PATIENT GIVEN SANDWICH, NO N/V.
--- NOTE | 2019-07-26 17:50 | NUR ---
NEW DRESSING APPLIED TO RIGHT GROIN SITE PER REQUEST OF PATIENT. VSS ON ROOM AIR. RIGHT GROIN DRESSING IS CDI, NO S/S OF BLEEDING OR HEMATOMA. NO C/O PAIN, NUMBNESS, OR TINGLING. TOLERATING PO FLUIDS AND FOOD, NO N/V. FAMILY PRESENT AT BEDSIDE.
--- NOTE | 2019-07-26 18:15 | NUR ---
WRITTEN AND VERBAL DISCHARGE INSTRUCTIONS GIVEN TO PATIENT AND DAUGHTER, BOTH VOICE UNDERSTANDING. RIGHT GROIN DRESSING IS CDI, NO S/S OF BLEEDING OR HEMATOMA. IV REMOVED. PATIENT GETTING DRESSED AT THIS TIME.
--- NOTE | 2019-07-26 18:24 | NUR ---
PATIENT TRANSPORTED VIA WHEELCHAIR TO CAR WITH DAUGHTER DRIVING, ALL BELONGINGS WITH PATIENT.
--- NOTE | 2019-07-29 14:34 | OP ---
PATIENT NAME: MEGA KEY MEDICAL RECORD: [id number] :64 LOCATION:D.CAT ADMISSION DATE: SURGEON: CAITLIN VALDIVIA MD DATE OF OPERATION: 07/26/2019 PROCEDURE: 1. Aortofemoral runoff. 2. Abdominal aortography. INDICATION: Peripheral vascular disease, difficulty obtaining access for coronary intervention. PROCEDURE: After informed consent was obtained and after a detailed description of risks, benefits as well as alternative therapies, the patient elected to proceed with angiogram and aortofemoral runoff. The right femoral area had a preexisting sheath for cardiac catheterization. However, with the advancement of the initial catheter, we got in a false lumen in the mid aorta. The catheter was pulled back. It was rewired. The abdominal aortography and aortofemoral runoff were performed to ensure patency after dissection and false channel with the catheter advancement. FINDINGS: Abdominal aortography reveals mild irregularities, no flow-limiting stenosis. No evidence of a false channel or dissection. RIGHT LEG: A. Iliac: The common iliac has a previously placed stent. This is widely patent. There is no evidence of dissection throughout the iliacs. These are widely patent. B. Femoral system: The common superficial and deep femoral have moderate irregularities, but no flow-limiting stenosis. C. Popliteal and infrapopliteal vessels are widely patent with good 3-vessel runoff to the foot. LEFT LEG: A. Iliac: The common internal and external iliacs are widely patent. No significant stenosis. No evidence of dissection. B. Femoral system: The common superficial and deep femoral have moderate irregularities, but no flow-limiting stenosis. C. Popliteal and infrapopliteal vessels are widely patent with good 3-vessel runoff to the foot. OVERALL IMPRESSION: Wide patency of the abdominal aorta and iliacs in the legs bilaterally, unknown etiology. The false channel was initially traversed with the coronary catheter; however, clearly, the wire was in the true lumen at this time and there is no compromise of the aorta or the lower extremities. TRANSINT:[id number] Voice Confirmation ID: [id number] DOCUMENT ID: [id number] OPERATIVE REPORT [id number] MEGA KEY CAITLIN VALDIVIA MD at 1434 CC: [id number] DICTATION DATE: 07/26/19 1417 BOARD CATCHER: 07/26/19 2332 DEP CLI 07/26/19 [facility] [address] [place] [address]
--- NOTE | 2019-07-29 14:34 | OP ---
PATIENT NAME: MEGA KEY MEDICAL RECORD: [id number] :64 LOCATION:D.CAT ADMISSION DATE: SURGEON: CAITLIN VALDIVIA MD DATE OF OPERATION: 07/26/2019 PROCEDURES: 1. PTCA stent LAD. 2. PTCA stent left circumflex. 3. Left heart catheterization. 4. Selective coronary angiography. 5. Left ventriculogram. 6. IFR RCA. 7. IFR left circumflex. PROCEDURE IN DETAIL: After informed consent was obtained and after a detailed description of risks, benefits as well as alternative therapies, the patient elected to proceed with angiogram and angioplasty. The right femoral area was prepped and draped in normal sterile fashion. Right femoral artery was cannulated via modified Seldinger technique with placement of 6-[place]ore[place] sheath. All catheters exchanged through this sheath. FINDINGS: Left ventriculogram was performed in standard 30-degree SCHROEDER view, reveals good cardiac wall motion throughout all segments. Overall ejection fraction estimated 60%. SELECTIVE CORONARY ANGIOGRAPHY: 1. Left main is with no significant angiographic disease. 2. Left anterior descending has 90% stenosis in the mid vessel. 3. Left circumflex has previously placed stents. There is questionable area of stenosis after the previously placed stents. IFR was abnormal at 0.75. 4. The right coronary has previously placed stents. There is a questionable area of stenosis at the end of this; however, IFR was normal at greater than 0.95. Percutaneous transluminal coronary angioplasty stent of the left circumflex: The stent used was a 2.25 x 18 mm Rodrigo. Result was 0% residual stenosis. The IFR normalized to 0.95. PTCA STENT OF THE LAD: Stents used were 2.5 x 22 and 2.5 x 15, both [place] stents. Result was 0% residual stenosis. OVERALL IMPRESSION: Successful percutaneous transluminal coronary angioplasty stent of the left anterior descending and circumflex, both going from 80% to 90% initial stenosis to 0% residual. TRANSINT:[id number] Voice Confirmation ID: [id number] DOCUMENT ID: [id number] OPERATIVE REPORT [id number] MEGA KEY CAITLIN VALDIVIA MD at 1434 CC: [id number] DICTATION DATE: 07/26/19 1417 REAL ESTATE COORDINATOR: 07/26/19 2326 DEP CLI 07/26/19 [facility] [address] [place] [address]
--- NOTE | 2019-07-30 14:42 | NUR ---
PT LEFT DISCHARGE PAPERWORK IN WHEELCHAIR. FOUND AND PT CALLED. PT HAS BEEN ON PLAVIX SINCE PROCEDURE, SHE ALREADY HAD A PRESCRIPTION AT HOME. I DISCUSSED HER FOLLOW UP APPT DATE AND TIME AND ALSO CALLED HER NEW PLAVIX PRESCRIPTION INTO [facility] PER PT REQUEST. SPOKE WITH NEVILLE.
== END 2019-07-26 18:24 | disposition home or self-care (01) ==
LOC: D.CATH 08:55 → D.CLR 10:19 → D.CATH 11:00
PROVIDERS: ATTEND Internal Medicine Interventional Cardiology
DX: I25.110 Atherosclerotic heart disease of native coronary artery with unstable angina pectoris (principal)
CPT/HCPCS: C9600 ×2; 93458; 93571; 93572

== ENCOUNTER → 2019-12-23 19:00 | Outpatient (CLI) | payer OTHER ==
[2019-07-26 10:02] VITALS: BMI 19.9
[2019-12-23 20:16] LABS: CHOL - HDL RATIO 3.7 ratio (2.3-4.1); LDL-HDL RATIO 2.3 ratio (1.5-3.5)
== END | disposition home or self-care (01) ==
LOC: D.LABREF 19:00
PROVIDERS: ATTEND Internal Medicine Interventional Cardiology
DX: E78.5 Hyperlipidemia, unspecified (principal)